=== PATIENT | male | born 1960 | race Caucasian/White ===

== ENCOUNTER → 2016-07-01 | Outpatient (CLI) | payer MEDICARE, MEDICAID ==
[~2016-07-01] MED LIST: BACITRACIN--O.0.9 GM TP; BETADINE30 ML TP; BYSTOLIC10 MG PO; COLACE-DPS100 MG PO; COZAAR100 MG PO; LIPITOR80 MG PO; NORVASC DPS10 MG PO; PERCOCET 5 DPS1 TAB PO; PLAVIX75 MG PO; TYLENOL DPS325 MG PO; VALIUM-DPS5 MG PO
== END | disposition home or self-care (01) ==
LOC: PTH.S 12:11
DX: Z01.818 Encounter for other preprocedural examination (principal)

== ENCOUNTER 2016-07-07 05:56 | Observation (INO) | payer MEDICARE, MEDICAID ==
[~2016-07-07] VITALS: Ht 180.3 cm; Wt 92.0 kg
--- NOTE | ~2016-07-07 | DS ---
ADMIT: 07/07/2016 RM/LOC: [address] [facility] MR#: [id number] [facility]#: [id number] [address] [facility] [address] [place] [phone] LISANDRO CORONA [address] [place] [id number] Discharge Summary SEX: M AGE: 55 : 1960 ADMISSION DATE: 07/07/2016 DISCHARGE DATE: 07/08/2016 REASON FOR ADMISSION: 1. Cervical spondylosis. 2. Cervical myelopathy. 3. Cervical radiculopathy. PROCEDURES: Anterior cervical diskectomy and fusion at cervical 4-5. HOSPITAL COURSE: Mr. Corona tolerated his procedure well. Postoperatively, he was taken to the Med/Surg floor for monitoring and care. That evening, he was complaining of a significant headache and he was hypertensive with a systolic blood pressure in the 190s. He was given a dose of Lasix, which did help bring down his blood pressure and relieved his headache. He did work with Physical Therapy and Occupational Therapy and tolerated this quite well. Postop day number one, he was awake and alert. He was afebrile. His vital signs were stable. He was moving all extremities x4 with 5/5 strength. His incision was clean, dry, and intact. There was no hematoma or cerebrospinal fluid accumulation noted. He did have just a small amount of soft tissue swelling. He was complaining of a little bit of right shoulder pain and some numbness and tingling to his right fingers, but reported it was not significant. He was ambulating, urinating, and defecating per his norm, and was requesting discharge home. DISCHARGE CONDITION: Good. MEDICATIONS: 1. Colace 100 mg p.o. b.i.d. 2. Bacitracin ointment to incision q.p.m. x14 days. 3. Percocet 5/325, 1-2 p.o. q.4 hours p.r.n. pain. 4. Valium 5 mg 1-2 tablets p.o. q.8 hours p.r.n. 5. Amlodipine 10 mg p.o. daily. 6. Bystolic 10 mg p.o. daily. 7. Losartan 100 mg p.o. daily. 8. Clopidogrel 75 mg daily. He can restart this on 07/10/2016. 9. Atorvastatin 80 mg at bedtime. 10.Acetaminophen 650 mg b.i.d. p.r.n. 11.Betadine to incision q.a.m. x14 days. DISCHARGE INSTRUCTIONS: (Per Dr. Powell) He can have a regular cardiac diet. He may shower. He should not take any ADMIT: 07/07/2016 RM/LOC: 507 [facility] MR#: [id number] [address] [address] LISANDRO CORONA [address] [place] [address] Discharge Summary SEX: M AGE: 55 : 1960 tub baths. He should pat his incision dry. He should not lift anything greater than 15 pounds[address] He should not drive until he is seen in clinic in two weeks. He should not take any NSAIDs. He will call with any questions or concerns including neurological worsening, signs or symptoms of infection, or any other issues. FOLLOWUP: He will follow up with Cary in clinic in two weeks. DISPOSITION: He was discharged home. Total [id number] time for the discharge planning and care coordination was 30 minutes. Cary Costa APRN / Oliver Powell MD / steve JOB #: [id number] CC: Oliver Powell MD, Attending Physician Piedad Adams MD, Family Physician
[2016-07-09] MEDS ORDERED: BYSTOLIC10 MG PO (18:19)
[2016-07-09] MEDS ORDERED: COZAAR100 MG PO (18:19)
[2016-07-09] MEDS ORDERED: NORVASC DPS10 MG PO (18:19)
[2016-07-09] MEDS ORDERED: PLAVIX75 MG PO (18:20)
[2016-07-09] MEDS ORDERED: LIPITOR80 MG PO (18:20)
[2016-07-09] MEDS ORDERED: COLACE-DPS100 MG PO (18:21)
[2016-07-09] MEDS ORDERED: TYLENOL DPS325 MG PO (18:21)
[2016-07-09] MEDS ORDERED: BETADINE30 ML TP (18:21)
[2016-07-09] MEDS ORDERED: PERCOCET 5 DPS1 TAB PO (18:22)
[2016-07-09] MEDS ORDERED: BACITRACIN--O.0.9 GM TP (18:22)
[2016-07-09] MEDS ORDERED: VALIUM-DPS5 MG PO (18:23)
--- NOTE | 2016-07-11 09:58 | OR ---
ADMIT: 07/07/2016 RM/LOC: 507 [facility] MR#: [id number] [address] [address] LISANDRO EUCEDA Nehemiah [address] [place] [id number] Operative/Delivery Room Report SEX: M AGE: 55 : 1960 SURGERY DATE: 07/07/2016 SURGEON: Oliver Powell MD PREOPERATIVE DIAGNOSIS: Severe degenerative disk disease, C4-C5, with myeloradiculopathy supra-adjacent to prior cervical fusion. POSTOPERATIVE DIAGNOSIS: Severe degenerative disk disease, C4-C5, with myeloradiculopathy supra-adjacent to prior cervical fusion. PROCEDURE: 1. Wide anterior cervical diskectomy, C4-C5, directly above the prior fusion. This was done for decompression both in the thecal sac and neural foramen bilaterally. 2. Anterior arthrodesis, C4-C5. 3. Placement of PEEK interbody cage at the C4-C5 level, packed with cadaveric allograft for fusion substrate. 4. Anterior instrumentation with diffuse Synthes combined anterior plate/PEEK interbody system with placement of four vancomycin powder- coated screws. SERVICE DESK AGENT: Cary Costa APRN DESCRIPTION OF PROCEDURE: After gaining informed consent, the patient was taken to the operative theater and placed under general endotracheal anesthesia in a supine position. A time-out was utilized to ascertain the correct site and side of surgery as well as other pertinent patient historical information. Counts were obtained at the beginning and end of the case with no change betwixt the two. Antibiotics given within 1 hour of the incision. The Betancourt-Wells tongs were placed 2 fingerbreadths superior to the pinna with 10 pounds of traction, which was removed at the time of instrumentation. The prior incision was opened, this was then taken down through the paratracheal and paraesophageal groove with relatively limited amount of scar tissue noted into a very depth, which was scarred over top of the prior plate. The superior aspect of the prior plate was noted and at this point, decision was made to use the combined adjacent level system rather than removal of the old plate after seeing the scar tissue and with concern for stripping all of that down at the lower levels. Once this was determined, attention was turned to the C4-C5 level on the superior aspect of the prior plate. At this point, fluoroscopy was used to confirm the level. Various curettes, rongeurs, and high-speed drill were used to resect the very calcified disk level of C4-C5, drilling back to the posterior longitudinal ligament, resecting posterior annular calcifications and the posterior longitudinal ligament allowing the ability to sound into the neural foramen bilaterally with no sign of continued compression. There was some scarring in the inferior aspect of the thecal sac onto the posterior longitudinal ADMIT: 07/07/2016 RM/LOC: 507 [facility] MR#: [id number] [address] [address] LISANDRO EUCEDA [address] [place] [address] Operative/Delivery Room Report SEX: M AGE: 55 : 1960 ligament, extreme caution was used not to obtain a CSF leak. Once this was completed, pristine hemostasis was obtained and attention was turned to placing the PEEK interbody graft. This was packed full of cadaveric morcellated allograft and then tapped into place. The anterior plate was at the level of the vertebral body, this was evaluated under fluoroscopy. Fluoroscopy was utilized during the placement of the screws as well. The screw holes were drilled and then 16 mm threaded screws interlocking into the plate were placed on an angle with 14 mm of purchase. These were vancomycin powder coated before implantation. Once this was done, pristine hemostasis was obtained. Attention was turned to closure. The wound was closed with simple inverted interrupted 2-0 Vicryl with subcuticular 3-0 Stratafix on the skin and Steri-Strips over that. Ms. Costa assisted with suction, retraction, and closure at the end of the case COMPLICATIONS: None. ESTIMATED BLOOD LOSS: 10 mL. SPECIMEN: Disk. DISPOSITION: Extubated and taken to postanesthesia care unit. Oliver Powlel MD/ rodri JOB #: [id number] CC: Oliver Powell, Attending Physician Piedad Adams, Family Physician
== END 2016-07-08 11:47 | disposition home or self-care (01) ==
LOC: WOR 05:56 → 5MS 11:46
PROVIDERS: ADMIT Neurological Surgery
PROC: 0RG10A0 Fusion of Cervical Vertebral Joint with Interbody Fusion Device, Anterior Approach, Anterior Column, Open Approach (ICD-10-PCS; principal; 2016-07-07)
PROC: 0RB30ZZ Excision of Cervical Vertebral Disc, Open Approach (ICD-10-PCS; principal; 2016-07-07)
DX: M50.121 Cervical disc disorder at C4-C5 level with radiculopathy (principal); M47.12 Other spondylosis with myelopathy, cervical region; M47.22 Other spondylosis with radiculopathy, cervical region; M50.20 Other cervical disc displacement, unspecified cervical region; I10 Essential (primary) hypertension; Z90.49 Acquired absence of other specified parts of digestive tract; Z98.890 Other specified postprocedural states; I25.10 Atherosclerotic heart disease of native coronary artery without angina pectoris; F17.200 Nicotine dependence, unspecified, uncomplicated